=== PATIENT | male | born 1960 | race Caucasian/White ===

== ENCOUNTER 2020-07-03 18:46 | Emergency (ER) | payer BC ==
[2020-07-03] MEDS ORDERED: Cyclobenzaprine 10 MG TAB ONE (19:13)
[2020-07-03 19:38] LABS: #Basophils 0.1 thou/uL (0.0-0.2); #Lymphocytes 1.3 thou/uL (1.20-3.40); #Monocytes 0.6 thou/uL (0.11-0.59); #Neutrophils 6.4 thou/uL (1.40-6.50); %Basophils 0.6 % (0.0-1.0); %Eosinophils 0.3 % (0.0-10.0); %Lymphocytes 15.4 % (21.0-51.0); %Monocytes 7.1 % (0.0-10.0); %Neutrophils 76.7 % (42.0-75.0); Hemoglobin 15.7 g/dL (14.0-18.0); Mean Corpuscular HGB CONC 34.5 g/dL (32.0-36.0); Mean Corpuscular Hemoglobin 31.7 pg (27.0-31.0); Mean Platelet Volume 7.9 fL (7.4-10.4); Platelet Count 174 thou/uL (130-400); RBC Distribution Width 10.5 % (11.5-14.5); Red Blood Cell (RBC) Count 4.95 mill/uL (4.70-6.10); White Blood Cell (WBC) Count 8.4 thou/uL (4.8-10.8)
[2020-07-03 19:54] LABS: Bilirubin Negative (Negative); Blood, Urine Negative (Negative); Clarity Clear (Clear); Glucose, Urine (Dipstick) Negative (Negative); Ketone, Urine Trace mg/dL (Negative); Leukocyte Negative (Negative); Nitrite Negative (Negative); Protein, Urine (Dipstick) Negative (Neg-Trace); Specific Gravity, Urine 1.025 (1.005-1.030); Urobilinogen 0.2 mg/dL (Less than 2); pH, Urine 8.5 (5.0-9.0)
[2020-07-03 19:55] LABS: ALT (SGPT) 56 U/L (8-55); AST (SGOT) 32 U/L (5-34); Albumin 4.8 g/dL (3.5-5.0); Alkaline Phosphatase 55 U/L (40-110); Anion Gap 17 mmol/L (10-20); BUN (Urea Nitrogen) 22 mg/dL (8.4-25.7); Calc. Creatinine Clearance 0 mL/min (70-130); Calcium 9.9 mg/dL (7.8-10.44); Carbon Dioxide 24 mmol/L (22-29); Chloride 106 mmol/L (98-107); Globulin 2.6 g/dL (2.4-3.5); Glucose 114 mg/dL (70-105); Potassium 4.3 mmol/L (3.5-5.1); Protein, Total 7.4 g/dL (6.0-8.3); Sodium 143 mmol/L (136-145)
[2020-07-03] MEDS ORDERED: Ketorolac Tromethamine 30 MG/ML VIAL ONE (20:05)
[2020-07-03] MEDS ORDERED: Ondansetron PF 4 MG/2 ML Vial ONE (20:05)
--- NOTE | 2020-07-03 20:22 | RAD ---
THORACIC SPINE THREE VIEWS: History: Injury FINDINGS: Multilevel disc osteophytosis. No evidence for overt acute fracture or dislocation. IMPRESSION: Spondylosis without acute fracture or dislocation. If the patient has persistent or nonresolving pain, consider follow up CT or MRI on a non-emergent ba sis. POS: RRE
--- NOTE | 2020-07-03 20:23 | RAD ---
CHEST ONE VIEW PORTABLE: History: Injury FINDINGS: Heart size is within normal limits. There is no pneumothorax or pleural effusion. No acute pulmonary or parenchymal process. IMPRESSION: No significant acute intrathoracic disease. POS: RRE
[2020-07-03] MEDS ORDERED: HYDROcodone/Acetaminophen 10/325 mg Tablet ONE (20:41)
== END 2020-07-03 20:50 | disposition home or self-care (01) ==
LOC: MADERS 18:46
DX: M62.830 Muscle spasm of back (principal); I10 Essential (primary) hypertension; E11.40 Type 2 diabetes mellitus with diabetic neuropathy, unspecified; Z79.899 Other long term (current) drug therapy; W01.0XXA Fall on same level from slipping, tripping and stumbling without subsequent striking against object, initial encounter
CPT/HCPCS: 36415; 71045; 72072; 80053; 81003; 85025; 96374; 96375; J1885; J2405